=== PATIENT | male | born 1990 | race Caucasian/White ===

== ENCOUNTER 2017-11-07 04:02 | Emergency (ER) | payer OTHER ==
[~2017-11-07] VITALS: Ht 185.4 cm; Wt 73.5 kg
[2017-11-07] MEDS ORDERED: ASPIRIN 325 MG TAB PO ONE (04:15)
[2017-11-07] MEDS ORDERED: PANTOPRAZOLE 40 MG 10ML VIAL IV ONE (04:15)
[2017-11-07] MEDS ORDERED: PEPCID20 MG PO (04:49)
[2017-11-07] MEDS ORDERED: IBUPROFEN400 MG PO (04:49)
== END 2017-11-07 05:00 | disposition home or self-care (01) ==
LOC: FSED 04:02
DX: R07.89 Other chest pain (principal); M94.0 Chondrocostal junction syndrome [Tietze]
CPT/HCPCS: 71046; 80048; 80076; 80307; 81003; 82553; 83880; 84484; 85025; 85379; 93005; 99283